=== PATIENT | female | born 1970 | race Caucasian/White ===

== ENCOUNTER → 2017-12-11 | Emergency (ER) | payer MEDICAID ==
[2017-12-11 10:49] LABS: URINE BLOOD (Dip) POC Trace-intact (NEGATIVE); URINE GLUCOSE (Dip) POC Negative (NEGATIVE); URINE KETONES (Dip) POC Negative (NEGATIVE); URINE LEUKOCYTE EST (Dip) POC Negative (NEGATIVE); URINE NITRITE (Dip) POC Negative (NEGATIVE); URINE TOTAL PROTEIN POC Negative (NEGATIVE)
[2017-12-11] MEDS: IBUPROFEN 800 MG TAB PO (11:12)
== END | disposition home or self-care (01) ==
LOC: FTE 09:40
DX: R30.0 Dysuria (principal)
CPT/HCPCS: 81003; 99284

== ENCOUNTER 2018-07-23 09:06 | Emergency (ER) | payer MEDICAID ==
[2018-07-23] MEDS: IBUPROFEN 600 MG TAB PO (10:35)
== END 2018-07-23 12:36 | disposition home or self-care (01) ==
LOC: FTE 09:06
DX: M79.601 Pain in right arm (principal)
CPT/HCPCS: 73080; 73080-RT; 73090-RT; 99283-25